=== PATIENT | female | born 1945 | race Caucasian/White ===

== ENCOUNTER 2024-08-08 06:02 | Outpatient (CLI) | payer MEDICARE, SELFPAY ==
--- NOTE | 2024-08-08 06:18 | USCV_ITS ---
Yuliya Mantilla Age: 78 Gender: F : 1945 Exam Date: 08/08/2024 06:30 Ordering Phys: Siria Steiner MD Technologist: Exam Location: [facility] [place] Indication: ? celiac art stenosis from ct scan no pain when eating Findings Pre and post prandial doppler evaluation of the mesenteric arteries. Velocities are slightly elevated the celiac axis and SMA with also mild elevation after eating. Velocity elevation does not support a significanat stenosis. Mild stenosis celiac axis. Conclusions No high grade stenosis mesenteric arteries. Mild celiac axis stenosis. Dr. Niecy Crespo DO (Electronically Signed) Final Date: 08 August 2024 12:06 S
== END 2024-08-08 06:03 | disposition home or self-care (01) ==
PROVIDERS: PCP Pediatrics; Visit Provider Pediatrics
DX: R93.89 Abnormal findings on diagnostic imaging of other specified body structures (principal)
CPT/HCPCS: 93975